=== PATIENT | female | born 1995 | race Caucasian/White ===

== ENCOUNTER 2024-08-21 13:13 | Outpatient (CLI) | payer OTHER | END 2024-08-21 13:16 | disposition home or self-care (01) | LOC: PRENATAL 13:13 | PROVIDERS: ATTEND Obstetrics & Gynecology Maternal & Fetal Medicine | DX: O26.849 Uterine size-date discrepancy, unspecified trimester (principal); O30.90 Multiple gestation, unspecified, unspecified trimester; O36.1999 Maternal care for other isoimmunization, unspecified trimester, other fetus; Z3A.15 15 weeks gestation of pregnancy ==